=== PATIENT | male | born 1960 | race Caucasian/White ===

== ENCOUNTER 2017-02-07 07:57 | Day surgery (SDC) | payer OTHER ==
[2017-02-02 10:08] VITALS: BMI 28.7
[2017-02-07] MEDS ORDERED: PROPOFOL 20 ML ONE ×2 (08:04)
[2017-02-07 09:53] VITALS: TEMP 97.6
[2017-02-07 10:15] VITALS: BP 107/76; PULSE 70
== END 2017-02-07 10:15 | disposition home or self-care (01) ==
LOC: FASU-ENDO 07:57
PROVIDERS: ATTEND Internal Medicine Gastroenterology
PROC: 0DJD8ZZ Inspection of Lower Intestinal Tract, Via Natural or Artificial Opening Endoscopic (ICD-10-PCS; principal; 2017-02-07 09:16)
DX: Z12.11 Encounter for screening for malignant neoplasm of colon (principal); K57.30 Diverticulosis of large intestine without perforation or abscess without bleeding